=== PATIENT | male | born 1945 | race Caucasian/White ===

== ENCOUNTER 2022-05-21 12:02 | Emergency (ER) | payer MEDICARE, BC, SELFPAY ==
--- NOTE | ~2022-05-21 | XR_ITS ---
EXAMINATION: XR FINGER, RIGHT CLINICAL INFORMATION: Middle finger, question retained forearm. COMPARISON: None TECHNIQUE: 3 views of the right hand third digit. FINDINGS: A curvilinear 8mm radiopaque density is seen in the soft tissues adjacent to the distal phalanx of the third digit without surrounding abnormality. The underlying distal phalanx is intact. Mild distal interphalangeal, first carpal metacarpal, triscaphe and radiocarpal degenerative joint changes are seen. There is no acute fracture or dislocation. The soft tissues are unremarkable. XR/XR finger RT min 2V IMPRESSION: 1. Retained foreign body in the distal third digit as detailed above without significant underlying abnormality. 2. Mild degenerative joint changes most consistent with osteoarthritis.
[2022-05-21 12:29] VITALS: BP 134/79; PULSE 83; RESP 18; TEMP 36.6; O2SAT 97; BMI 21.4
--- NOTE | 2022-05-21 17:51 | ED_ITS ---
HPI - Extremity Problem General Chief complaint: Extremity Injury, Upper Stated complaint: finger lac from fish hook Time Seen by Provider: 05/21/22 17:51 Source: patient and family () Mode of arrival: ambulatory Limitations: no limitations History of Present Illness HPI Narrative: Patient is a 77 year old male presenting to the emergency department today with a retained fish hook to the right middle finger. Patient states that yesterday, he was fishing and caught a hook in his right middle finger. Patient states that the jun at the [employer] attempted to cut it out for him and some of it is still stuck in his finger, including the part with the ruba. Patient denies any dizziness, lightheadedness, abdominal pain, nausea, vomiting, fever, chills, blurry vision, double vision, loss of vision, chest pain, difficulty breathing, shortness of breath, back pain, night sweats, pain with urination, increased urinary frequency, increased urinary urgency, blood in his urine or stool, syncope or a near syncopal episode, bowel incontinence, bladder incontinence, bowel retention, bladder retention, or any other complaints at this time. Patient states he does not know when his last tetanus was. MD Complaint: other (retained foreign body in right middle finger) Onset (ago): day(s) (1) Pain Consistency: constant Location: right and other (middle finger) Severity scale (1-10): 2 Quality: dull Radiation: none Relieving factors: nothing Exacerbating factors: palpation Associated symptoms: denies other symptoms Related Data Previous Rx's Medication Instructions Recorded cephalexin 500 mg capsule 500 mg PO Q6H 7 days #28 caps 05/21/22 Allergies Allergy/AdvReac Type Severity Reaction Status Date / Time No Known Allergies Allergy Unverified 06/18/20 16:07 Review of Systems Constitutional: Constitutional: Reports no additional constitutional complaints, Denies chills, Denies fever(s) and Denies night sweats Eyes: Eyes: Reports no additional eye complaints, Denies blurry vision, Denies change in vision, Denies diplopia, Denies eye discharge, Denies loss of vision and Denies eye pain ENT: Denies dizziness Cardiovascular: Cardiovascular: Reports no additional cardiovascular complaints, Denies chest pain, Denies lightheadedness, Denies Loss of Consciousness and Denies dyspnea Respiratory: Respiratory: Reports no additional respiratory complaints and Den ies dyspnea Gastrointestinal: Gastrointestinal: Reports no additional gastrointestinal complaints, Denies abdominal pain, Denies melena, Denies hematochezia, Denies change in bowel habits and Denies change in stool character Genitourinary: Genitourinary: Reports no additional male genitourinary complaints, Denies hematuria, Denies oliguria, Denies difficulty urinating, Denies dysuria, Denies urinary frequency, Denies urinary hesitancy, Denies urinary incontinence and Denies urinary urgency Musculoskeletal: Musculoskeletal: Reports no additional musculoskeletal complaints, Denies numbness and Denies tingling Integumentary/Breasts: Comments: small puncture wound to the right middle finger Neurologic: Denies dizziness, Denies loss of vision, Denies numbness and Denies tingling Psychiatric: Psychiatric: Reports no additional psychiatric complaints Endocrine: Endocrine: Reports no additional endocrine complaints Hematologic/Lymphatic: Hematologic/Lymphatic: Reports no additional hematologic/lymphatic complaints Allergic/Immunologic: Allergic/Immunologic: Reports no additional allergic/immunologic complaints PMFSH Past Medical History Attestation statement: The following information was validated with the patient. Source: old records reviewed Social History Social History Advance Directives: No Advance Directives Information Provided: No Physical Exam Vital Signs: Vital Signs: Last Vital Signs Temp 97.9 F 05/21/22 12:29 Pulse 83 05/21/22 12:29 Resp 18 05/21/22 12:29 BP 134/79 05/21/22 12:29 Pulse Ox 97 05/21/22 12:29 O2 Del Method 05/21/22 12:29 BMI result Body Mass Index 21.4 Const: General: cooperative, no acute distress, alert and awake Nutritional Appearance: well nourished Orientation/consciousness: patient oriented x3 Limitations: no limitations HEENT: Head: Yes normal to inspection and Yes atraumatic Ears: hearing grossly normal bilaterally and external ears normal General nose exam: Normal external nose present, no nasal discharge noted and no epistaxis Face and sinus: Yes normal facial exam, No abrasion and No laceration Mouth: Normal oral and palatal mucosa present, no drooling and no muffled voice Eyes: General: appearance normal, both eyes and all related structures Periorbital: periorbital findings normal Eyelids: Yes eyelids normal Conjunctivae: conjunctivae normal Pupils: Equal, round and reactive pupils present EOM: EOMs intact bilaterally Neck: Neck: Yes normal visual inspection, Yes full ROM and Yes no lymphadenopathy Chest: Chest palpation & inspection: normal inspection of the chest Resp: Effort & Inspection: normal respiratory effort and able to speak in complete sentences Auscultation: clear to auscultation bilaterally Cardio: Rate: regular rate Rhythm: regular rhythm GI: Inspection: Yes normal to inspection Skin: Other: small puncture wound in the pad of the right middle finger, no active bleeding. Foreign body can be felt palpating the punctured area Neuro: General: patient oriented x3 and moves all extremities Cranial nerves: Yes Equal, round and reactive pupils present Cognition (Neuro): normal cognition Motor exam (neuro): 5/5 motor strength present throughout Sensory Exam: Normal double simultaneous stimulation for sensation Coordination: [id number] test normal Extrem: General: Yes normal to inspection, Yes full ROM and Yes capillary refill normal Psych: Appearance: grossly normal Mental Status: mental status grossly normal Affect: normal affect Attitude: cooperative Thought process: Normal thought process present Thought content: Normal thought content present Insight: Good insight present (Psych) MDM - Extremity (Nontraumatic) MDM Narrative Medical decision making narrative: Patient is a 77 year old male presenting to the emergency department today with a retained piece of fish hook in his right middle finger. Patient's physical exam showed a very small puncture wound to the right middle finger with the remaining fish hook piece being felt on palpation. Patient's right hand x-ray confirmed a retained piece of fish hook. I explained my physical exam findings as well as all test results to the patient and the patient's . I answered all questions asked by the patient and the patient's . I removed the retained piece of fish hook from the patients right middle finger, without incident, as detailed in the procedure note. Patient was brought up to date on tetanus. I stressed the importance of the patient taking his medication as prescribed. I stressed the importance of the patient following up with his primary care provider. I stressed the importance of the patient returning to the emergency department immediately if his symptoms were to worsen or if he were to develop any dizziness, shortness of breath, difficulty breathing, chest pain, blurry vision, loss of vision, nausea, vomiting, abdominal pain, fever, chills, back pain, or any other complaints. Patient and the patient's verbalized agreement and understanding with this treatment plan and discharge. Medical Records Attestation: I reviewed the patient's medical records. Imaging Data Right hand x-ray: Attestation: I personally reviewed and interpreted this imaging study as follows: My impression: Retained foreign body in distal third digit. Radiologist's impression: EXAMINATION: XR FINGER, RIGHT CLINICAL INFORMATION: Middle finger, question retained forearm.? COMPARISON: None? TECHNIQUE: 3 views of the right hand third digit. FINDINGS: A curvilinear 8mm radiopaque density is seen in the soft tissues adjacent to the distal phalanx of the third digit without surrounding abnormality. The underlying distal phalanx is intact. Mild distal interphalangeal, first carpal metacarpal, triscaphe and radiocarpal degenerative joint changes are seen. There is no acute fracture or dislocation. The soft tissues are unremarkable. XR/XR finger RT min 2V IMPRESSION: 1. Retained foreign body in the distal third digit as detailed above without significant underlying abnormality. 2. Mild degenerative joint changes most consistent with osteoarthritis. Dictated By: Arpan Santamaria MD Signed By: Electronically signed by Arpan Santamaria MD 05/21/22 1400 Procedures Foreign Body Removal Time Out Performed: yes Site: right and other (middle finger) Description of foreign body: fish hook Sedation/Analgesia: none Technique: manual removal, removal with forceps and incision made to facilitate removal Confirmed by:: direct visualization Complications: none Post-procedure exam: awake, alert Neurovascular: normal distal pulse, normal capillary fill, distal light touch sensation intact, distal motor function normal and no signs of compartment syndrome Discharge Plan Discharge Clinical Impression: Fish hook in finger Patient Disposition: Home, Self-Care Instructions: Puncture Wound (ED) Additional Instructions: Follow up with your primary care provider. Return to the emergency department immediately if your symptoms worsen or if you develop any dizziness, shortness of breath, difficulty breathing, chest pain, blurry vision, loss of vision, nausea, vomiting, abdominal pain, fever, chills, back pain, or any other complaints. Prescriptions: New cephalexin 500 mg capsule 500 mg PO Q6H 7 Days Qty: 28 0RF [place] [facility] [place] (Call to establish and follow up with a primary care provider. If you already have a primary care provider, please follow up with them. ) [facility] [place] [facility] [place]Provider Group] (Call to establish and follow up with a primary care provider. If you already have a primary care provider, please follow up with them. ) [facility] [place] [facility] [place]] (Call to establish and follow up with a primary care provider. If you already have a primary care provider, please follow up with them. ) Interventions: ED Discharge Assessment Last Done: 05/21/22 18:56 Discharge Date/Time: 05/21/22 18:57 Print Language: Greek
[2022-05-21] MEDS: Diphth,Pertus(ACell),Tet Adult 0.5 ML SYRINGE IM (18:47)
== END 2022-05-21 18:57 | disposition home or self-care (01) ==
PROVIDERS: Emergency Provider Emergency Medicine
DX: S61.242A Puncture wound with foreign body of right middle finger without damage to nail, initial encounter (principal); W45.8XXA Other foreign body or object entering through skin, initial encounter; Y93.14 Activity, water aerobics and water exercise; Y92.89 Other specified places as the place of occurrence of the external cause; Y99.9 Unspecified external cause status
CPT/HCPCS: 10120; 73140; 90471; 90715; 99282; 99284

== ENCOUNTER 2024-09-12 23:59 | Outpatient (BNV) | payer MEDICARE, BC, SELFPAY | END 2024-09-13 23:59 | PROVIDERS: PCP Internal Medicine; Visit Provider Internal Medicine | DX: I21.4 Non-ST elevation (NSTEMI) myocardial infarction (principal); I35.0 Nonrheumatic aortic (valve) stenosis | CPT/HCPCS: 99223 ==

== ENCOUNTER 2025-01-06 13:30 | Outpatient (RCR) | payer MEDICARE, BC, SELFPAY | END 2025-01-22 13:35 | disposition home or self-care (01) | LOC: HO.CR 13:30 | PROVIDERS: PCP Internal Medicine; Visit Provider Internal Medicine Interventional Cardiology | DX: I21.4 Non-ST elevation (NSTEMI) myocardial infarction (principal); I21.3 ST elevation (STEMI) myocardial infarction of unspecified site | CPT/HCPCS: 93798 ==